=== PATIENT | female | born 1990 | race Asian ===

== ENCOUNTER 2018-06-22 10:48 | Inpatient (IN) | payer BC ==
[2018-06-22] MEDS ORDERED: Bupivacaine/Epinephrine 0.25% 30 ML VIAL ONE (17:56)
[2018-06-22] MEDS ORDERED: Promethazine HCl 25 MG/ML VIAL IM PRN (22:37)
[2018-06-22] MEDS ORDERED: Diphenoxylate HCl/Atropine Tablet PO PRN (22:37)
[2018-06-22] MEDS ORDERED: NS w/ Oxytocin 10 units 500 ML IV SCH (22:37)
[2018-06-22] MEDS ORDERED: Butorphanol Tartrate 1 MG/ML VIAL SLOW IVP PRN (22:37)
[2018-06-22] MEDS ORDERED: Misoprostol 200 MCG TAB PR PRN (22:37)
[2018-06-22] MEDS ORDERED: Zolpidem Tartrate 5 MG TAB PO PRN (22:37)
[2018-06-22] MEDS ORDERED: Ibuprofen 800 MG TAB PO PRN (22:37)
[2018-06-22] MEDS ORDERED: Ondansetron HCl/PF 4 MG/2 ML Vial IVP PRN (22:37)
[2018-06-22] MEDS ORDERED: Carboprost 250 MCG/ML AMP IM PRN (22:37)
[2018-06-22] MEDS ORDERED: Lidocaine 1% (PF) 30 ML VIAL SC PRN (22:37)
[2018-06-22] MEDS ORDERED: Acetaminophen 500 MG TAB PO PRN (22:37)
[2018-06-22] MEDS ORDERED: Methylergonovine 0.2 MG/ML VIAL IM PRN (22:37)
[2018-06-22] MEDS ORDERED: NS / Oxytocin 40 units/1000ml 1,000 ML IV PRN (22:37)
[2018-06-22] MEDS ORDERED: HYDROcodone/Acetaminophen 5/325 mg Tablet PO PRN (22:37)
[2018-06-22] MEDS: Misoprostol 100 MCG TAB VAG SCH (23:27)
[2018-06-22] MEDS: Lactated Ringer's 1,000 ML IV SCH (23:28)
[2018-06-22 23:46] LABS: Hemoglobin 12.2 g/dL (12.0-16.0); Mean Corpuscular HGB CONC 35.1 g/dL (32.0-36.0); Mean Corpuscular Hemoglobin 32.7 pg (27.0-31.0); Mean Corpuscular Volume 93.1 fL (78.0-98.0); Mean Platelet Volume 9.3 fL (7.4-10.4); Platelet Count 251 thou/uL (130-400); RBC Distribution Width 16.9 % (11.5-14.5); Red Blood Cell (RBC) Count 3.73 mill/uL (4.20-5.40); White Blood Cell (WBC) Count 9.7 thou/uL (4.8-10.8)
[2018-06-23 00:10] VITALS: BMI 29.2
[2018-06-23 00:21] LABS: Syphilis Antibody Nonreactive (Nonreactive); Syphilis Antibody Index 0.04 S/CO (<1.00 Non-Reactive)
[2018-06-23 01:51] LABS: Hep B Surf Ag Non-Reactive S/CO (NonReactive)
[2018-06-23] MEDS: Misoprostol 100 MCG TAB VAG SCH ×2 (02:29→07:32)
[2018-06-23] MEDS: Lactated Ringer's 1,000 ML IV SCH ×4 (05:53→20:12)
--- NOTE | 2018-06-23 08:04 | PDOC.LDHP ---
Labor and Delivery H&P Chief complaint: scheduled induction HPI: 28yo at 40w1d by LMP for IOL 2/2 A1GDM and hypothyroid. s/p 3 doses cytotec overnight, last dose place 0730, painful ctx. Current gestational age (weeks): 40 Due date: 06/22/18 Dating criteria: last menstrual period Grav: 1 Para: 0 Current complications: gestational diabetes (diet controlled) Abnormal US findings: No Past Medical History: hypothyroid Current medications: pre- vitamins, other (levothyroxine 75mcg) Previous surgical history: none Allergies/Adverse Reactions: Allergies Allergy/AdvReac Type Severity Reaction Status Date / Time Sulfa (Sulfonamide Allergy Verified 06/22/18 22:36 Antibiotics) Social history: none - Physical Exam Vital signs reviewed and normal: yes General: NAD Heart: RRR Lungs: CTAB Abdomen: gravid Extremeties: no edema FHT: category 1 [place] contractions every: 3-5min - Vaginal Exam cm dilated: 3 Effacement: 50% Station: -2 (arom clear) - OB Labs Blood type: B RH: positive Antibody Screen: negative HIV: negative RPR: negative HEPSAg: negative 1 hour GCT: positive 3 hour GTT: positive for GDM GBS: negative Urine drug screen: negative Rubella: immune - Assessment L&D Assessment: medically indicated induction - Plan Plan: admit to L&D, labor augmentation if indicated, informed consent obtained, anesthesia consult for pain management
[2018-06-23] MEDS ORDERED: diphenhydrAMINE 50 MG/ML VIAL ONE (09:22)
[2018-06-23] MEDS ORDERED: Fentanyl 4 mcg/Bup 0.1% Cadd 100 ML ONE ×2 (11:44→20:54)
[2018-06-23] MEDS ORDERED: Acetaminophen 325 MG TAB PO PRN (17:06)
[2018-06-23] MEDS ORDERED: diphenhydrAMINE 50 MG/ML VIAL IVP PRN (17:06)
[2018-06-23] MEDS ORDERED: Ondansetron HCl/PF 4 MG/2 ML Vial IVP PRN (17:06)
[2018-06-23] MEDS ORDERED: Eucerin (Mineral Oil/Petrolatum,White) 30 gm Jar TOP PRN (17:06)
[2018-06-23] MEDS ORDERED: Promethazine HCl 25 MG/ML VIAL IM PRN (17:06)
[2018-06-23] MEDS ORDERED: Lactated Ringer's 500 ML IV PRN (17:06)
[2018-06-23] MEDS ORDERED: Naloxone HCl 0.4 mg/ml Vial IVP PRN ×2 (17:06)
[2018-06-23] MEDS ORDERED: ePHEDrine/0.9% NaCl/PF SYRINGE 50 mg/10 ml SLOW IVP PRN (17:06)
[2018-06-23] MEDS ORDERED: Fentanyl 4 mcg/Bupivacaine 0.1% Cassette 100 ML EPIDURAL SCH (17:15)
[2018-06-23] MEDS ORDERED: Communication Order-Pharmacy FS SCH (17:15)
--- NOTE | 2018-06-24 00:58 | PDOC.LDPN ---
Labor & Delivery Progress Note - Subjective Subjective: comfortable - Objective Vital signs reviewed and normal: yes General: NAD Uterine fundus: non tender Dilation: 8 Effacement: 100% Station: 1+ (TRACI) FHT: category 2, late decelerations [place] contractions every: 2-3min -: Patient with slow progress through labor, 6cm at 1700, 8cm at 1930, now arrested x 4 hours however inadequate MVU. Pushing was attempted to reduce cervix as it is very stretchy however unable to fully reduce posterior lip. Will rest off pitocin x 30min then restart at 1/2 and go up, give additional 2 hours once on pitocin and adequate for cervical change as long as status reassuring. FHT baseline has increased to 160 from 140, pt may be getting chorio, will start abx for persistent tachycardia or maternal fever, however this is not an indication for CS unless pt is not progressing. Pt is also having some VB with pushing, No e/o abruption, feel this is bloody show due to cervical trauma. Cont to monitor closely. Plan of care discussed with nursing and patient and and the agree.
[2018-06-24] MEDS ORDERED: Gentamicin Sulfate 120 MG in Premix Bag 1 BAG IVPB SCH (04:30)
[2018-06-24] MEDS ORDERED: Ampicillin 2 GM in Sodium Chloride 0.9% 100 ML IVPB SCH (04:30)
[2018-06-24] MEDS ORDERED: CEFAZOLIN/Water 2 GM/20 ML SYRINGE ONE (06:53)
[2018-06-24] MEDS ORDERED: Bicitra 30 ML UDCUP ONE (06:53)
[2018-06-24] MEDS ORDERED: Morphine PF 1 MG/ML SYR ONE (07:15)
[2018-06-24] MEDS ORDERED: Ketorolac Tromethamine 30 MG/ML VIAL ONE (07:16)
[2018-06-24] MEDS ORDERED: ePHEDrine/0.9% NaCl/PF SYRINGE 50 mg/10 ml ONE (07:16)
[2018-06-24] MEDS ORDERED: PHENYLEPHRINE-NS 100 MCG/ML 10 ML SYRINGE ONE (07:16)
[2018-06-24] MEDS ORDERED: Succinylcholine Chloride 20 MG/ML 10 ml SYRINGE FS ONE (07:16)
[2018-06-24] MEDS ORDERED: Oxytocin 10 UNITS/ML VIAL ONE (07:17)
[2018-06-24] MEDS ORDERED: Lidocaine 2% 10 ML INJ ONE ×2 (07:25→07:50)
[2018-06-24] MEDS ORDERED: Lidocaine 1.5% w/Epi 1:200K 30 ML VIAL (Epid Use) ONE (07:28)
[2018-06-24] MEDS ORDERED: Ketamine 50 MG/ML VIAL ONE (07:28)
[2018-06-24] MEDS ORDERED: Ondansetron HCl/PF 4 MG/2 ML Vial ONE (07:32)
[2018-06-24] MEDS ORDERED: Midazolam HCl 2 mg/2 ml Vial ONE (07:57)
[2018-06-24] MEDS: Misoprostol 100 MCG TAB VAG SCH ×4 (11:53→13:39)
[2018-06-24] MEDS ORDERED: Ketorolac Tromethamine 30 MG/ML VIAL IVP PRN (13:36)
[2018-06-24] MEDS ORDERED: Hydrocerin (Eucerin) Cream 120 gm Jar TOP PRN (13:36)
[2018-06-24] MEDS ORDERED: Promethazine HCl 25 MG SUPP PR PRN (13:36)
[2018-06-24] MEDS ORDERED: diphenhydrAMINE 50 MG/ML VIAL IVP PRN (13:36)
[2018-06-24] MEDS ORDERED: Ondansetron HCl/PF 4 MG/2 ML Vial IVP PRN (13:36)
[2018-06-24] MEDS ORDERED: NO PO,IM,IV OR SC NARCOTICS FOR 12HR EXCEPT BY ANESTHESIA PO SCH (13:36)
[2018-06-24] MEDS ORDERED: Naloxone HCl 0.4 mg/ml Vial IV PRN ×3 (13:36)
[2018-06-24] MEDS ORDERED: Promethazine HCl 25 MG/ML VIAL IM PRN ×2 (13:36→13:45)
[2018-06-24] MEDS ORDERED: Zolpidem Tartrate 5 MG TAB PO PRN (13:45)
[2018-06-24] MEDS ORDERED: Methylergonovine 0.2 MG/ML VIAL IM PRN (13:45)
[2018-06-24] MEDS ORDERED: HYDROcodone/Acetaminophen 5/325 mg Tablet PO PRN ×2 (13:45)
[2018-06-24] MEDS ORDERED: Adacel (T-DAP) 0.5 ML VIAL IM SCH (13:45)
[2018-06-24] MEDS ORDERED: Lanolin Ointment 7 GM TUBE TOP PRN (13:45)
[2018-06-24] MEDS ORDERED: Ondansetron HCl/PF 4 MG/2 ML Vial SLOW IVP PRN (13:45)
[2018-06-24] MEDS ORDERED: diphenhydrAMINE 25 MG CAP PO PRN (13:45)
[2018-06-24] MEDS ORDERED: NS / Oxytocin 40 units/1000ml 1,000 ML IV SCH (13:45)
[2018-06-24] MEDS ORDERED: Bisacodyl 10 MG SUPP PR PRN ×2 (13:45→21:21)
[2018-06-24] MEDS ORDERED: Acetaminophen 325 MG TAB PO PRN (13:45)
[2018-06-24] MEDS ORDERED: ADMIXTURE FEE IVPB SCH ×3 (14:00→22:00)
[2018-06-24] MEDS ORDERED: D5W IVPB SCH ×3 (14:00→22:00)
[2018-06-24] MEDS ORDERED: CLINDAMYCIN IVPB SCH ×3 (14:00→22:00)
[2018-06-24 15:46] LABS: Actual Bicarbonate (HCO3a) 19.8 mEq/L (22-28); Analyzer IN Cardio OR; Base Excess (BEa) -6.4 mEq/L (-2.0 to +3.0)
[2018-06-24] MEDS: Clindamycin/D5W 900 MG in Premix Bag 1 BAG IVPB SCH ×2 (15:49→23:49)
[2018-06-24] MEDS: Ibuprofen 800 MG TAB PO SCH ×2 (15:53→21:17)
[2018-06-24] MEDS: Ferrous Sulfate 325 MG TAB PO SCH (15:53)
[2018-06-24] MEDS ORDERED: Simethicone Chewable 80 MG TAB PO PRN (16:05)
[2018-06-24] MEDS: ADMIXTURE FEE IVPB SCH (16:45)
[2018-06-24] MEDS: GENTAMICIN SULFATE IVPB SCH (16:45)
[2018-06-24] MEDS: SODIUM CHLORIDE IVPB SCH (16:45)
[2018-06-24] MEDS: Ampicillin 2 GM in Sodium Chloride 0.9% 100 ML IVPB SCH (18:12)
[2018-06-24] MEDS ORDERED: Docusate Calcium (SURFAK) 240 MG CAP PO SCH (21:00)
[2018-06-24] MEDS: Lactated Ringer's 1,000 ML IV SCH (21:18)
[2018-06-24] MEDS: HYDROcodone/Acetaminophen 5/325 mg Tablet PO PRN (22:47)
[2018-06-25] MEDS: Ampicillin 2 GM in Sodium Chloride 0.9% 100 ML IVPB SCH ×5 (00:48→23:13)
[2018-06-25] MEDS: HYDROcodone/Acetaminophen 5/325 mg Tablet PO PRN ×4 (04:31→20:06)
[2018-06-25] MEDS ORDERED: Ibuprofen 800 MG TAB PO SCH ×2 (06:15→22:00)
[2018-06-25] MEDS: Lactated Ringer's 1,000 ML IV SCH (06:52)
--- NOTE | 2018-06-25 08:05 | PRG ---
DATE OF SERVICE: 06/25/2018 HISTORY OF PRESENT ILLNESS: The patient is a 28-year-old female postop day #1, status post a primary for failure to descend complicated by chorioamnionitis. This morning, the patient is tolerating p.o. She is voiding on her own, having decreased lochia. OBJECTIVE: VITAL SIGNS: Blood pressure is 100/50, temperature 97.7, pulse is 79, respiratory rate of 18. GENERAL: She appears to be in no acute distress. She is alert and oriented, cooperative, and pleasant to interact with. HEAD: Normocephalic, atraumatic. ABDOMEN: Soft, appropriately tender. Fundus is firm. Incision is clean, dry, and intact. EXTREMITIES: Nontender, nonedematous. ASSESSMENT AND PLAN: The patient is postop day #1 status post a primary C- section. We will continue routine postoperative care. Anticipate discharge on Wednesday. Pt has been on triple abx therapy. MTDD
[2018-06-25] MEDS: Prenatal Vitamin 1 TAB PO SCH (08:19)
[2018-06-25] MEDS: Docusate Calcium (SURFAK) 240 MG CAP PO SCH ×2 (08:19→20:06)
[2018-06-25] MEDS: Ferrous Sulfate 325 MG TAB PO SCH ×2 (08:19→17:07)
[2018-06-25] MEDS: Clindamycin/D5W 900 MG in Premix Bag 1 BAG IVPB SCH ×3 (08:20→23:13)
--- NOTE | 2018-06-25 11:11 | OP ---
DATE OF OPERATION: 06/24/2018 PREOPERATIVE DIAGNOSES: 1. Intrauterine at 40 weeks and 2 days. 2. Arrest of descent. 3. Nonreassuring heart tones. 4. Chorioamnionitis. POSTOPERATIVE DIAGNOSES: 1. Intrauterine at 40 weeks and 2 days. 2. Arrest of descent. 3. Nonreassuring heart tones. 4. Chorioamnionitis. PROCEDURE PERFORMED: Primary low transverse section via Pfannenstiel skin incision. ANESTHESIA: Epidural. ATTENDING SURGEON: Carla Buenrostro M.D. MEDICAL LABORATORY SCIENTIST SURGEON: Ladan Guevara, PGY II. ESTIMATED BLOOD LOSS: 800 mL COMPLICATIONS: None. PATHOLOGY: Placenta. DRAINS: Xiong catheter. FINDINGS: Female infant, OA presentation, clear amniotic fluid. Apgars and weight are pending. Cor d pH 7.29, base excess negative 6.4. Normal uterus, ovaries and tubes bilaterally. Hysterotomy with out extension. OPERATIVE TECHNIQUE: The patient was taken to the operating room where epidural anesthesia was found to be adequate. The patient was prepped and draped in a sterile fashion in dorsal supine position w ith a leftward tilt. After ensuring adequacy of anesthesia, a Pfannenstiel skin incision was made an d carried down to the underlying subcutaneous tissue with the Bovie. The fascia was nicked in the mi dline with the Bovie and carried laterally with the Abraham scissors. The superior aspect of the fascia was tented with 2 Kochers and dissected off the rectus bluntly. The inferior aspect of the fascia w as tented with 2 Kochers and dissected off the rectus down to the pubic symphysis with the Abraham sciss ors. The peritoneum was bluntly entered into and manually retracted and the [place] O retractor was p laced. The vesicouterine peritoneum was identified and the bladder flap was created with the Rochelle au. The hysterotomy was incised in a transverse fashion and the lower uterine segment and extended with the Loya maneuver. The infant's head was brought to the hysterotomy and delivered with fundal pressure followed by the body. The 's delayed cord clamping was performed and the 's cor d was clamped and infant handed to awaiting sukhwinder team. The cord gas and cord blood were collected and the placenta was allowed to spontaneously deliver. The uterus was cleared of all clots and debris a nd the hysterotomy was repaired with a #1 Monocryl in a running locking fashion. A second imbricatin g layer horizontally was placed with #1 Monocryl. Hemostasis was noted. The pelvis was copiously ir rigated and suctioned and the [place] O retractor was removed. The peritoneum was reapproximated with a 2-0 chromic in a running fashion. The rectus muscles were examined and noted to be hemostatic. T he fascia was reapproximated with a #1 PDS x1 suture with excellent reapproximation. The subcutaneou s tissue was irrigated and cauterized of any bleeders and reapproximated with a 2-0 plain gut in a ru nning fashion. The skin was closed with 4-0 Monocryl in a subcuticular fashion. Dermabond was appli ed. The patient tolerated the procedure well. Sponge, lap and needle counts correct x2. The patien t was taken to recovery room in stable condition. Patient received Ancef 2 grams and azithromycin 50 0 mg prior to the procedure.
[2018-06-25] MEDS: Ibuprofen 800 MG TAB PO SCH ×2 (13:41→21:07)
[2018-06-25] MEDS: SODIUM CHLORIDE IVPB SCH (15:15)
[2018-06-25] MEDS: GENTAMICIN SULFATE IVPB SCH (15:15)
[2018-06-25] MEDS: ADMIXTURE FEE IVPB SCH (15:15)
[2018-06-26] MEDS: Clindamycin/D5W 900 MG in Premix Bag 1 BAG IVPB SCH ×2 (00:20→07:55)
[2018-06-26] MEDS: HYDROcodone/Acetaminophen 5/325 mg Tablet PO PRN ×4 (03:49→20:33)
[2018-06-26] MEDS: Ibuprofen 800 MG TAB PO SCH ×3 (05:49→20:32)
[2018-06-26] MEDS: Ampicillin 2 GM in Sodium Chloride 0.9% 100 ML IVPB SCH (05:49)
--- NOTE | 2018-06-26 06:35 | PDOC.PP ---
Post Progress Note Post Day #: POD#2 Subjective: Resting comfortably, no c/o. Afebrile since delivery. PO intake tolerated: yes Flatus: yes Ambulation: yes Vital Signs (12 hours) Temp Pulse Resp BP BP Pulse Ox 06/26/18 04:00 98.3 F 78 20 105/53 L 06/26/18 00:00 97.9 F 79 18 115/59 L 06/25/18 20:00 97.7 F 86 18 111/53 L 99 Weight Weight 77.111 kg - Physical Examination General: NAD Respiratory: non-labored breathing Abdominal: no distention Skin: CS incision dry & intact Psychiatric: normal affect Result Diagrams: 06/22/18 23:24 Additional Labs: Post Labs Blood Type B POSITIVE 06/22/18 23:24 Hep Bs Antigen Non-Reactive S/CO (NonReactive) 06/22/18 23:24 - Assessment/Plan Doing well. AF x 24 hrs, will DC ABX. Advance diet. Ambulate hallway.
[2018-06-26] MEDS: Docusate Calcium (SURFAK) 240 MG CAP PO SCH ×2 (07:54→20:32)
[2018-06-26] MEDS: Ferrous Sulfate 325 MG TAB PO SCH ×2 (07:55→17:06)
[2018-06-26] MEDS: Prenatal Vitamin 1 TAB PO SCH (07:57)
[2018-06-27] MEDS: HYDROcodone/Acetaminophen 5/325 mg Tablet PO PRN ×4 (01:27→16:05)
[2018-06-27] MEDS: Ibuprofen 800 MG TAB PO SCH ×2 (06:02→13:50)
[2018-06-27 07:38] VITALS: BP 116/63; TEMP 98.3
--- NOTE | 2018-06-27 07:56 | PDOC.PP ---
Post Progress Note Post Day #: 3 PO intake tolerated: yes Flatus: yes Ambulation: yes Vital Signs (12 hours) Temp Pulse Resp BP Pulse Ox 06/27/18 07:37 98.3 F 69 20 116/63 97 06/26/18 21:00 98.4 F 88 18 120/65 Weight Weight 170 lb - Physical Examination General: NAD Cardiovascular: RRR Respiratory: non-labored breathing Abdominal: no distention, appropriately TTP Fundus firm & at: umb-2 Extremities: negative homans (B) Skin: CS incision dry & intact Neurological: no gross focal deficits Psychiatric: normal affect Result Diagrams: 06/22/18 23:24 Additional Labs: Post Labs Blood Type B POSITIVE 06/22/18 23:24 Hep Bs Antigen Non-Reactive S/CO (NonReactive) 06/22/18 23:24 - Assessment/Plan POD 3 s/p PCS for AOD, NRFHT, chorio VSSAF Chorio s/p A/G/C x 48hr no e/o infection currently afebrile Met all postop milestones, hgb appropriate, pain controlled Rh pos RImm DC home FU 2 wks.
[2018-06-27] MEDS: Ferrous Sulfate 325 MG TAB PO SCH (08:13)
[2018-06-27] MEDS: Prenatal Vitamin 1 TAB PO SCH (08:13)
[2018-06-27] MEDS: Docusate Calcium (SURFAK) 240 MG CAP PO SCH (08:13)
== END 2018-06-27 16:30 | disposition home or self-care (01) | DRG 786 ==
LOC: L&D 22:22 → 3SW 06-24 11:16 → UNDODISIN 06-24 14:25
PROVIDERS: ADMIT Student in an Organized Health Care Education/Training Program; ATTEND Student in an Organized Health Care Education/Training Program
PROC: 10D00Z1 Extraction of Products of Conception, Low, Open Approach (ICD-10-PCS; principal; 2018-06-24)
PROC: 3E0P7VZ Introduction of Hormone into Female Reproductive, Via Natural or Artificial Opening (ICD-10-PCS; 2018-06-24)
PROC: 10907ZC Drainage of Amniotic Fluid, Therapeutic from Products of Conception, Via Natural or Artificial Opening (ICD-10-PCS; 2018-06-24)
DX: O64.8XX0 Obstructed labor due to other malposition and malpresentation, not applicable or unspecified (principal); O41.1230 Chorioamnionitis, third trimester, not applicable or unspecified; O76 Abnormality in fetal heart rate and rhythm complicating labor and delivery; O24.420 Gestational diabetes mellitus in childbirth, diet controlled; O99.284 Endocrine, nutritional and metabolic diseases complicating childbirth; E03.9 Hypothyroidism, unspecified; Z3A.40 40 weeks gestation of pregnancy; Z37.0 Single live birth
CPT/HCPCS: 36415; 36416; 51702; 82805; 85027; 86780; 86850; 86900; 86901; 87340; 88307; J0290; J1200; J1580; J1885; J2001; J2250; J2274; J2405; J2590; J3490; J7050